=== PATIENT | female | born 1965 | race African-American/Black ===

== ENCOUNTER 2019-08-11 20:45 | Emergency (ER) | payer BC, OTHER ==
[~2019-08-11] VITALS: Ht 167.6 cm; Wt 97.5 kg
[2019-08-11 22:07] VITALS: BP 139/72
== END 2019-08-11 22:09 | disposition left against medical advice (07) ==
LOC: ER 20:45
DX: Z53.21 Procedure and treatment not carried out due to patient leaving prior to being seen by health care provider (principal)